=== PATIENT | female | born 2000 | race Caucasian/White ===

== ENCOUNTER 2021-11-19 12:25 | Emergency (ER) | payer OTHER ==
[~2021-11-19] VITALS: Ht 154.9 cm; Wt 78.0 kg
[2021-11-19 12:27] VITALS: BP 120/75
[2021-11-19 13:11] LABS: BASOPHILS % 0.4 % (0.0-2.0); EOSINOPHILS % 2.3 % (0.0-5.0); HEMATOCRIT. 45.9 % (36.0-48.0); LYMPHOCYTES % 28.5 % (20.0-50.0); MEAN CORPUSCULAR HEMOGLOBIN 29.2 pg (28.0-32.0); MEAN CORPUSCULAR VOLUME 83.8 fL (81.0-99.0); MONOCYTES % 4.1 % (2.0-8.0); NEUTROPHILS % 64.7 % (40.0-76.0); PLATELET 271 x1000/uL (130-400); RED BLOOD CELL COUNT 5.48 mill/uL (4.2-5.4)
[2021-11-19 13:18] LABS: CHLORIDE 105 mEq/L (98-107)
[2021-11-19 13:19] LABS: HCG SCREEN NEGATIVE
[2021-11-19] MEDS ORDERED: ACETAMINOPHEN 325MG TABLET PO ONE (14:45)
== END 2021-11-19 15:43 | disposition home or self-care (01) ==
LOC: ER 12:25
DX: R07.89 Other chest pain (principal)
CPT/HCPCS: 36415; 71045; 80053; 84484; 84703; 85025; 93005; 99285